=== PATIENT | male | born 1970 | race Caucasian/White ===

== ENCOUNTER 2017-04-13 01:46 | Emergency (ER) | payer OTHER ==
[~2017-04-13] VITALS: Ht 185.4 cm; Wt 99.8 kg
[2017-04-13] MEDS ORDERED: WARFARIN SODIUM5 MG PO (01:52)
[2017-04-13] MEDS ORDERED: CLOPIDOGREL75 MG PO (01:54)
[2017-04-13] MEDS ORDERED: ENOXAPARIN80 MG/0.8 SUB-Q (01:54)
--- NOTE | 2017-04-13 07:51 | EKG ---
[facility] [address] [address] Signed Normal sinus rhythm Inferior infarct , age undetermined Abnormal ECG No previous ECGs available Confirmed by PRESTON SHELTON MD ([id number]) on 04/13/2017 7:51:04 AM Electronically Signed By: PRESTON SHELTON MD 04/13/17 0751 PATIENT NAME: AAYUSH STEINER Electrocardiogram DATE OF : 68 PHYSICIAN: PRESTON SHELTON MD REPORT #: [id number] REPORT IS CONFIDENTIAL AND NOT TO BE RELEASED WITHOUT AUTHORIZATION
== END 2017-04-13 05:30 | disposition home or self-care (01) ==
LOC: ED 01:46 → EDBD 01:47 → ED 01:47
DX: R07.89 Other chest pain (principal); R45.851 Suicidal ideations; Z76.5 Malingerer [conscious simulation]; I25.2 Old myocardial infarction; Z95.5 Presence of coronary angioplasty implant and graft; Z88.5 Allergy status to narcotic agent; Z88.8 Allergy status to other drugs, medicaments and biological substances; Z79.01 Long term (current) use of anticoagulants; Z79.899 Other long term (current) drug therapy
CPT/HCPCS: 71020; 80053; 80176; 81001; 84484; 85025; 85379; 85610; 85730; 93005; 93010; 99284; G0480

== ENCOUNTER 2017-04-13 19:55 | Emergency (ER) | payer OTHER ==
[~2017-04-13] VITALS: Ht 185.4 cm; Wt 99.8 kg
[~2017-04-13 19:55] MED LIST: CLOPIDOGREL75 MG PO; ENOXAPARIN80 MG/0.8 SUB-Q; WARFARIN SODIUM5 MG PO
--- NOTE | 2017-04-14 05:53 | EKG ---
[facility] [address] [place] [address] Signed Normal sinus rhythm Inferior infarct (cited on or before 13-APR-2017) Abnormal ECG When compared with ECG of 13-APR-2017 01:47, No significant change was found Confirmed by PRESTON SHELTON MD ([id number] on 04/14/2017 5:52:57 AM Electronically Signed By: PRESTON SHELTON MD 04/14/17 0553 PATIENT NAME: AAYUSH STEINER Electrocardiogram DATE OF : 68 PHYSICIAN: PRESTON SHELTON MD REPORT #: [id number] REPORT IS CONFIDENTIAL AND NOT TO BE RELEASED WITHOUT AUTHORIZATION
== END 2017-04-13 23:37 | disposition home or self-care (01) ==
LOC: ED 19:55 → EDBD 19:56 → ED 19:56
DX: R07.89 Other chest pain (principal); I25.2 Old myocardial infarction; Z95.5 Presence of coronary angioplasty implant and graft; Z90.49 Acquired absence of other specified parts of digestive tract; Z90.89 Acquired absence of other organs; Z88.5 Allergy status to narcotic agent; Z88.6 Allergy status to analgesic agent; Z88.8 Allergy status to other drugs, medicaments and biological substances; Z79.01 Long term (current) use of anticoagulants; Z79.899 Other long term (current) drug therapy
CPT/HCPCS: 71010; 80053; 80176; 81001; 84443; 84484; 85025; 85610; 93005; 93010; 99284; G0480